=== PATIENT | female | born 1985 | race Caucasian/White ===

== ENCOUNTER 2016-12-05 09:46 | Emergency (ER) | payer MEDICAID ==
[2016-12-05] MEDS ORDERED: IBUPROFEN200 M2 PO (10:05)
[2016-12-05] MEDS ORDERED: TYLENOL325 M2 PO (10:05)
[2016-12-05] MEDS ORDERED: ZOLOFT100 M1 PO (10:06)
[2016-12-05] MEDS ORDERED: XANAX0.25 M1 (10:06)
[2017-02-16] MEDS ORDERED: CYCLOBENZAPRINE10 M1 PO (08:57)
[2017-02-16] MEDS ORDERED: NAPROSYN500 M1 PO (08:57)
[2017-02-16] MEDS ORDERED: BACTRIM DS TAB1 EAC2 PO (10:03)
[2017-02-16] MEDS ORDERED: KEFLEX500 M4 PO (10:03)
[2017-04-24] MEDS ORDERED: AUGMENTIN 875-1 EAC2 PO (02:17)
== END 2016-12-05 12:59 ==
LOC: EDMED 09:46
DX: O72.1 Other immediate postpartum hemorrhage (principal); O99.345 Other mental disorders complicating the puerperium; F41.9 Anxiety disorder, unspecified; F32.9 Major depressive disorder, single episode, unspecified; Z98.890 Other specified postprocedural states; Z79.899 Other long term (current) drug therapy

== ENCOUNTER 2016-12-22 00:50 | Emergency (ER) | payer MEDICAID ==
[~2016-12-22 00:50] MED LIST: IBUPROFEN200 M2 PO; TYLENOL325 M2 PO; XANAX0.25 M1; ZOLOFT100 M1 PO
[2016-12-22] MEDS ORDERED: PRENATABS FA T1 EACH PO (01:04)
[2016-12-22 01:22] LABS: URINE BILIRUBIN NEGATIVE (NEG); URINE BLOOD MODERATE (NEG); URINE GLUCOSE (UA) NEGATIVE (NEG); URINE KETONE NEGATIVE (NEG); URINE LEUKOCYTE ESTERASE POSITIVE (NEG); URINE NITRITE NEGATIVE (NEG); URINE PROTEIN NEGATIVE (NEG)
[2016-12-22 01:27] LABS: URINE APPEARANCE CLEAR; URINE COLOR YELLOW
[2016-12-22 01:46] LABS: BASO % 0.4 % (0-2); EOS % 2.6 % (0-7); EOSINOPHIL ABSOLUTE COUNT 0.2 tho/cmm (0.0-0.7); HCT-HEMATOCRIT 35.2 % (34.0-49.0); HGB-HEMOGLOBIN 12.1 gm/dl (12.0-15.5); IMMATURE GRANULOCYTES ABSOLUTE 0.01 tho/cmm (0-0.03); IMMATURE GRANULOCYTES PERCENT 0.1 % (0-0.3); LYMPH % 34.1 % (20-45); LYMPH ABSOLUTE COUNT 3.1 tho/cmm (0.8-4.5); MCH (MEAN CORPUSCULAR HGB) 28.6 pg (28.0-32.0); MCHC MEAN CORPUSCULAR HGB CONC 34.4 % (32.0-36.0); MCV (MEAN CELL VOLUME) 83.2 fl (82.0-96.0); MEAN PLATELET VOLUME 9.6 cmc (9.4-12.4); MONO % 6.2 % (0-12); MONOCYTE ABSOLUTE COUNT 0.6 tho/cmm (0.0-1.2); NEUTROPHIL ABSOLUTE COUNT 5.1 tho/cmm (1.6-8.0); NEUTROPHIL-AUTOMATED 5.1 tho/cmm (1.6-8.0); NEUTROPHILS % 56.6 % (40-80); PLATELET COUNT 407 tho/cmm (150-450); RED BLOOD COUNT 4.23 mil/cmm (4.00-5.20); RED CELL DISTRIBUTION WIDTH 12.8 % (12.4-16.4)
[2016-12-22 01:56] LABS: ALB/GLOB RATIO 0.8 (0.8-2.0); ALBUMIN 3.2 g/dl (3.5-5.0); ALKALINE PHOSPHATASE 150 U/L (33-138); ALT/SGPT 25 U/L (12-78); ANION GAP 13 mmol/L (0-20); AST/SGOT 12 U/L (10-40); BILIRUBIN,TOTAL 0.2 mg/dl (0-1.5); BLOOD UREA NITROGEN 17 mg/dl (6-24); CALCIUM 8.3 mg/dl (8.5-10.5); CARBON DIOXIDE-VENOUS 25 mmol/L (22-32); CHLORIDE 107 mmol/l (96-110); CREATININE 0.85 mg/dl (0.50-1.10); GLUCOSE 115 mg/dL (70-110); LIPASE 166 U/L (73-393); POTASSIUM 3.9 mmol/L (3.7-5.1); SODIUM 141 mmol/L (135-145); eGFR VALUE FOR BLACK >90 mL/Min
[2017-02-16] MEDS ORDERED: NAPROSYN500 M1 PO (08:57)
[2017-02-16] MEDS ORDERED: CYCLOBENZAPRINE10 M1 PO (08:57)
[2017-02-16] MEDS ORDERED: KEFLEX500 M4 PO (10:03)
[2017-02-16] MEDS ORDERED: BACTRIM DS TAB1 EAC2 PO (10:03)
[2017-04-24] MEDS ORDERED: AUGMENTIN 875-1 EAC2 PO (02:17)
== END 2016-12-22 02:40 ==
LOC: EDMED 00:50
PROVIDERS: Emergency Medicine
DX: R10.11 Right upper quadrant pain (principal); Z90.89 Acquired absence of other organs
CPT/HCPCS: J1885; J2405; J7030

== ENCOUNTER 2017-01-22 07:16 | Day surgery (SDC) | payer MEDICAID ==
[~2017-01-22 07:16] MED LIST changes: +PRENATABS FA T1 EACH PO
[2017-01-22 08:20] LABS: PREGNANCY-SERUM NEGATIVE (NEGATIVE)
[2017-01-22 08:22] LABS: ALB/GLOB RATIO 0.9 (0.8-2.0); ALBUMIN 3.8 g/dl (3.5-5.0); ALKALINE PHOSPHATASE 170 U/L (33-138); ALT/SGPT 73 U/L (12-78); ANION GAP 11 mmol/L (0-20); AST/SGOT 30 U/L (10-40); BILIRUBIN,TOTAL 0.4 mg/dl (0-1.5); BLOOD UREA NITROGEN 19 mg/dl (6-24); CALCIUM 8.9 mg/dl (8.5-10.5); CARBON DIOXIDE-VENOUS 25 mmol/L (22-32); CHLORIDE 107 mmol/l (96-110); GLUCOSE 95 mg/dL (70-110); POTASSIUM 4.2 mmol/L (3.7-5.1); SODIUM 139 mmol/L (135-145); eGFR VALUE FOR BLACK >90 mL/Min
[2017-02-16] MEDS ORDERED: NAPROSYN500 M1 PO (08:57)
[2017-02-16] MEDS ORDERED: CYCLOBENZAPRINE10 M1 PO (08:57)
[2017-02-16] MEDS ORDERED: KEFLEX500 M4 PO (10:03)
[2017-02-16] MEDS ORDERED: BACTRIM DS TAB1 EAC2 PO (10:03)
[2017-04-24] MEDS ORDERED: AUGMENTIN 875-1 EAC2 PO (02:17)
== END 2017-01-22 14:15 ==
LOC: SHSB 07:16 → ORW 09:02 → PACU 09:52 → SHSB 10:49
PROVIDERS: Specialist
PROC: 0FT44ZZ Resection of Gallbladder, Percutaneous Endoscopic Approach (ICD-10-PCS; principal; 2017-01-22)
PROC: BF121ZZ Fluoroscopy of Gallbladder using Low Osmolar Contrast (ICD-10-PCS; 2017-01-22)
DX: K80.10 Calculus of gallbladder with chronic cholecystitis without obstruction (principal); F32.9 Major depressive disorder, single episode, unspecified; E66.01 Morbid (severe) obesity due to excess calories; Z68.36 Body mass index [BMI] 36.0-36.9, adult; Z88.8 Allergy status to other drugs, medicaments and biological substances; Z98.890 Other specified postprocedural states
CPT/HCPCS: C1894; J0690; J1170; J1885; J2765; J7030; J7050; Q9966